=== PATIENT | female | born 1945 | race Caucasian/White ===

== ENCOUNTER 2018-07-14 09:36 | Inpatient (IN) | payer OTHER ==
[~2018-07-14] VITALS: Ht 162.6 cm; Wt 62.7 kg
[2018-07-14] MEDS ORDERED: NACL 0.9% 1,000 ML IV ONE (09:39)
[2018-07-14] MEDS ORDERED: ONDANSETRON HCL 4 MG/2 ML VIAL IVP ONE (09:45)
[2018-07-14 09:54] VITALS: BP_SYST 118
--- NOTE | 2018-07-14 10:03 | NUR ---
Placed in room 8. Placed on cardiac rehabilitation program director, blood pressure machine and pulse oximeter. To gown for exam. Side rails up. Report given to Yael HASTINGS.
[2018-07-14] MEDS ORDERED: MORPHINE 4 MG/ML INJ. SYRINGE IVP ONE ×2 (10:45→11:45)
[2018-07-14] MEDS ORDERED: DIPHENOXYLATE HCL/ATROP SULF 2.5 MG TAB PO ONE (10:45)
[2018-07-14 11:00] LABS: ANION GAP 16 (5-15); CALCIUM 8.9 mg/dL (8.4-11.0); CHLORIDE 103 mmol/L (98-107); CREATININE 0.56 mg/dL (0.55-1.30); GLUCOSE 123 mg/dL (70-99); POTASSIUM 3.1 mmol/L (3.5-5.1); SODIUM SERUM 136 mmol/L (136-145); UREA NITROGEN, BLOOD 14 mg/dL (8-21)
[2018-07-14 11:02] LABS: HEMATOCRIT 38.4 % (36-48); HEMOGLOBIN 12.8 g/dL (12.0-16.0); MEAN CORPUSCULAR HEMOGLOBIN 34 pg (27-31); MEAN CORPUSCULAR HGB CONC 33 % (32-36); MEAN CORPUSCULAR VOLUME 102 fL (79.0-98.0); RED BLOOD CELL COUNT(AUTO) 3.75 MIL/uL (4.2-6.2); WHITE BLOOD COUNT (AUTO) 11.3 K/uL (4.8-10.8)
[2018-07-14 11:03] LABS: BASOPHILS % (AUTO) 0.1 % (0.0-2.0); EOSINOPHILS % (AUTO) 0.1 % (0.0-4.0); LYMPHOCYTES # (AUTO) 1.2 K/uL (1.0-5.5); LYMPHOCYTES % (AUTO) 10.6 % (20.5-51.5); MONOCYTES # (AUTO) 1.2 K/uL (0.0-1.0); MONOCYTES % (AUTO) 10.7 % (1.7-9.3); NEUTROPHILS # (AUTO) 8.9 K/uL (1.8-7.7); NEUTROPHILS % (AUTO) 78.5 % (40.0-70.0); PLATELET COUNT (AUTO) 424 K/uL (130-430); RED CELL DISTRIBUTION WIDTH 14.6 % (9.0-15.0)
[2018-07-14 11:06] LABS: ALANINE AMINOTRANSFERASE 13 U/L (12-78); ASPARTATE AMINOTRANSFERASE 15 U/L (10-37); LIPASE 132 U/L (73-393); TOTAL BILIRUBIN 0.8 mg/dL (0.0-1.0)
--- NOTE | 2018-07-14 11:28 | NUR ---
Patient presented to ER with left humerus fraction, fractured 1 week ago
[2018-07-14 11:29] LABS: PROTHROMBIN TIME 10.3 SECS (9.5-12.5)
--- NOTE | 2018-07-14 11:29 | NUR ---
Patient presented to ER with left humerus fraction, fractured 1 week ago and diarrhea yesterday. Patient arrive via wheel chair, patient states she was seen [facility]. Patient A&Ox4, hard of hearing, afebrile, denies N/V and denies diarrhea today. Patient states pain is 10/10. Patient states she was mediating with oral hydrocodone, xanax and celebrex.
[2018-07-14] MEDS ORDERED: CLOPIDOGREL BISULFATE 75 MG TABLET PO ONE (12:00)
[2018-07-14] MEDS ORDERED: ASPIRIN 81 MG TAB.CHEW PO ONE (12:00)
[2018-07-14] MEDS ORDERED: ALPR0.5T PO (12:16)
[2018-07-14] MEDS ORDERED: HYDR-4274 PO ×2 (12:16→14:51)
[2018-07-14] MEDS ORDERED: CELE200C PO (12:16)
[2018-07-14] MEDS ORDERED: FLUT1DIS5 IH (12:16)
[2018-07-14] MEDS ORDERED: LEVOFLOXACIN 250 MG/D5W 50 ML IV SCH (13:00)
[2018-07-14] MEDS ORDERED: ONDANSETRON HCL 4 MG/2 ML VIAL IVP PRN (13:00)
[2018-07-14] MEDS ORDERED: ACETAMINOPHEN 325 MG TABLET PO PRN (13:00)
--- NOTE | 2018-07-14 13:10 | NUR ---
Pt assisted with bedside commode to provide urine sample. Pt tolerated well. Pt placed back on gurney in comfortable position. VSS at this time.
--- NOTE | 2018-07-14 13:20 | NUR ---
ER at bedside discussing hospital admission patient.
--- NOTE | 2018-07-14 13:25 | NUR ---
Admission Note Received patient from ER with diagnosis of Chest Pain. Initial Plan of Care discussed-patient verbalized understanding. Family at bedside. Oriented to room, call light, pain management and safety.
--- NOTE | 2018-07-14 13:30 | NUR ---
Patient will be admitted to care of Dr. Sanders. Admitted to Teleunit. Will go to room 101A . Belongings list completed. Summary report printed. Report will be given at bedside Sandra HASTINGS.
[2018-07-14 13:31] LABS: BILIRUBIN,URINE NEGATIVE (NEGATIVE); BLOOD, URINE NEGATIVE (NEGATIVE); CLARITY/URINE CLEAR (CLEAR); COLOR,URINE YELLOW (YELLOW); GLUCOSE,URINE NEGATIVE (NEGATIVE); KETONES,URINE 1+ (NEGATIVE); LEUKOCYTE ESTERASE ,URINE NEGATIVE (NEGATIVE); NITRITE, URINE NEGATIVE (NEGATIVE); PH,URINE 6.5 (5.0-8.0); PROTEIN URINE NEGATIVE (NEGATIVE); UROBILINOGEN,URINE 0.2 (0.2-1.0)
--- NOTE | 2018-07-14 13:34 | NUR ---
Patient transferred via rdevon, mobile monitor, 2 RN to room 101A. Report given at bedside to VENKATA Flores for continuation of care.
[2018-07-14 13:48] VITALS: BP_SYST 141
--- NOTE | 2018-07-14 14:05 | NUR ---
INITIAL NOTE patient received resting in bed A&O x4, patient denies any acute distress or pain at this time, breathing is even and unlabored on room air, educated patient on plan of care and call light system, will continue to monitor, safety precautions in place, call light within reach.
--- NOTE | 2018-07-14 14:26 | NUR ---
CONSULT: CONSULT CALLED FOR DR. SMALLS I SPOKE WITH ADALID GAY REASON FOR CONSULT: CHEST PAIN REQUESTING CONSULT: DR. ANGIE GARCIA CARPENTER ASSISTANT PHONE NUMBER: [phone]
[2018-07-14] MEDS ORDERED: HYDROcodone/ACETAMIN 10-325 MG TAB PO PRN (15:00)
[2018-07-14] MEDS: MORPHINE 4 MG/ML INJ. SYRINGE IVP PRN ×2 (15:10→21:53)
[2018-07-14] MEDS: metroNIDAZOLE 500 MG TABLET PO SCH ×3 (15:11→21:26)
[2018-07-14] MEDS: LEVOFLOXACIN 250 MG/D5W 50 ML IV SCH (16:12)
[2018-07-14] MEDS: ALPRAZolam 0.25 MG TABLET PO SCH ×2 (16:18→21:27)
[2018-07-14 16:25] VITALS: BP_SYST 120
[2018-07-14 16:34] VITALS: BP_SYST 120
--- NOTE | 2018-07-14 16:37 | NUR ---
NOTES patient is resting in bed A&O x4, pain is controlled at this time, patient denies any acute distress, will continue to monitor, safety precautions in place, call light within reach.
[2018-07-14] MEDS ORDERED: POTASSIUM CHLORIDE 20 MEQ TAB.PRT.SR PO ONE (17:15)
[2018-07-14] MEDS: NACL 0.9% 1,000 ML IV SCH (17:30)
--- NOTE | 2018-07-14 17:55 | NUR ---
CONSULT I CALLED CONSULT FOR DR. MOROCHO I SPOKE WITH EVANGELIST GAY SHE SAID DR. MOROCHO CAN'T ACCEPT PT INSURANCES I TOLD GIGI HASTINGS ALSO ARMANDO BEAN DUMPER THEY BOTH TOLD ME TO ENTER THIS INFORMATION IN MY NOTES.
--- NOTE | 2018-07-14 18:44 | NUR ---
CLOSING NOTE patient is resting in bed with eyes closed, breathing is even and unlabored on room air, no acute distress is noted, pain is controlled at this time, IVF infusing as ordered, all needs were met throughout shift, will endorse report to oncoming nurse, safety precautions in place, call light within reach.
--- NOTE | 2018-07-14 19:35 | NUR ---
ROUNDS PATIENT RESTING COMFORTABLY IN BED, NOT IN DISTRESS, VITALS STABLE, DENIES ANY PAIN AND DISCOMFORT AT THIS TIME. ASSESSMENT DONE AND DOCUMENTED. SEE FLOWSHEET. NEEDS ATTENDED TO. SAFETY AND FALL PRECAUTION MEASURES IN PLACED. BED IN LOW AND LOCKED POSITION. BED ALARM ON. CALL LIGHT PLACED WITHIN REACH
[2018-07-14] MEDS: ALBUTEROL SULFATE 0.083% 2.5 MG/3 ML VIAL.NEB INH SCH (20:03)
[2018-07-14] MEDS: BUDESONIDE 0.5 MG/2 ML AMPUL.NEB INH SCH (20:17)
[2018-07-14] MEDS ORDERED: NON-FORMULARY MEDICATION (Fluticasone/Salmeterol (Advair 500-50 Diskus) 1 EACH) IH SCH (21:00)
[2018-07-14] MEDS: CELECOXIB 200 MG CAPSULE PO SCH (21:00)
--- NOTE | 2018-07-14 21:20 | NUR ---
MEDICATION DUE MEDICATIONS GIVEN SCHEDULED, TOLERATED WELL. WILL CONTINUE TO MONITOR.
--- NOTE | 2018-07-15 00:10 | NUR ---
PATIENT RESTING: Patient resting quietly. No acute distress noted. Vital signs within normal range.
[2018-07-15 00:44] VITALS: BP_SYST 147
[2018-07-15] MEDS: ALBUTEROL SULFATE 0.083% 2.5 MG/3 ML VIAL.NEB INH SCH ×4 (01:23→19:50)
--- NOTE | 2018-07-15 02:13 | NUR ---
ROUNDS PATIENT ASLEEP, NO SOB NOR PAIN AND DISCOMFORT NOTED. WILL CONTINUE TO MONITOR.
[2018-07-15] MEDS: MORPHINE 4 MG/ML INJ. SYRINGE IVP PRN ×5 (02:28→20:35)
--- NOTE | 2018-07-15 04:14 | NUR ---
PATIENT RESTING: Patient resting quietly. No acute distress noted. Vital signs within normal range.
[2018-07-15] MEDS: NACL 0.9% 1,000 ML IV SCH ×3 (05:58→12:30)
--- NOTE | 2018-07-15 06:31 | NUR ---
CLOSING NOTES PATIENT AWAKE, VITALS STABLE, NO MORE PAIN AT THIS TIME. ALL NEEDS ATTENDED TO. SAFETY AND FALL PRECAUTION MEASURES IN PLACED. CALL LIGHT PLACED WITHIN REACH.
[2018-07-15] MEDS: BUDESONIDE 0.5 MG/2 ML AMPUL.NEB INH SCH ×2 (07:00→19:50)
[2018-07-15 07:29] LABS: HEMATOCRIT 32.9 % (36-48); LYMPHOCYTES % (AUTO) 18.5 % (20.5-51.5); MEAN CORPUSCULAR HEMOGLOBIN 34 pg (27-31); MEAN CORPUSCULAR HGB CONC 34 % (32-36); MEAN CORPUSCULAR VOLUME 102 fL (79.0-98.0); NEUTROPHILS % (AUTO) 69.9 % (40.0-70.0); PLATELET COUNT (AUTO) 365 K/uL (130-430); RED BLOOD CELL COUNT(AUTO) 3.23 MIL/uL (4.2-6.2); RED CELL DISTRIBUTION WIDTH 14.5 % (9.0-15.0); WHITE BLOOD COUNT (AUTO) 8.9 K/uL (4.8-10.8)
[2018-07-15 07:30] LABS: BASOPHILS % (AUTO) 0.3 % (0.0-2.0); EOSINOPHILS % (AUTO) 0.4 % (0.0-4.0); LYMPHOCYTES # (AUTO) 1.6 K/uL (1.0-5.5); MONOCYTES % (AUTO) 10.9 % (1.7-9.3); NEUTROPHILS # (AUTO) 6.2 K/uL (1.8-7.7)
[2018-07-15 07:39] LABS: ALANINE AMINOTRANSFERASE 17 U/L (12-78); ALBUMIN 2.5 g/dL (3.4-4.8); ANION GAP 8 (5-15); ASPARTATE AMINOTRANSFERASE 10 U/L (10-37); CALCIUM 8.3 mg/dL (8.4-11.0); CHLORIDE 107 mmol/L (98-107); CHOLESTEROL 113 mg/dL (<200); CREATININE 0.52 mg/dL (0.55-1.30); GLUCOSE 108 mg/dL (70-99); HDL CHOLESTEROL 36 mg/dL (>55); LDL CHOLESTEROL 62 mg/dL (<100); POTASSIUM 3.6 mmol/L (3.5-5.1); SODIUM SERUM 137 mmol/L (136-145); TOTAL BILIRUBIN 0.6 mg/dL (0.0-1.0); TRIGLYCERIDES 107 mg/dL (30-150); UREA NITROGEN, BLOOD 11 mg/dL (8-21)
[2018-07-15 08:04] VITALS: BP_SYST 150
--- NOTE | 2018-07-15 08:15 | NUR ---
OPENING NOTE patient received resting in bed A&O x4, no acute distress or pain is noted at this time, breathing is even and unlabored on room air, will continue to monitor, educated patient on plan of care and call light system, safety precautions in place, call light within reach.
--- NOTE | 2018-07-15 08:51 | NUR ---
MD rounds Dr. Sanders assessed patient in room.
[2018-07-15] MEDS ORDERED: CALCIUM CARBONATE/VITAMIN D3 1 TAB TABLET PO SCH (09:00)
[2018-07-15] MEDS: CALCITONIN SALMON,SYNTHETIC 3.7 ML SPRAY.PUMP NS SCH (09:00)
[2018-07-15] MEDS: PANTOPRAZOLE SODIUM 40 MG TAB PO SCH (09:12)
[2018-07-15] MEDS: CELECOXIB 200 MG CAPSULE PO SCH ×2 (09:12→20:34)
[2018-07-15] MEDS: metroNIDAZOLE 500 MG TABLET PO SCH ×4 (09:12→20:34)
[2018-07-15] MEDS: ASPIRIN 81 MG TAB.CHEW PO SCH (09:12)
[2018-07-15] MEDS: ENOXAPARIN SODIUM 40 MG/0.4 ML SYRINGE SUBCUT SCH (09:14)
[2018-07-15] MEDS: ALPRAZolam 0.25 MG TABLET PO SCH ×3 (09:15→20:35)
[2018-07-15] MEDS ORDERED: CALCIUM CARBONATE/VITAMIN D3 1 TAB TABLET PO ONE (09:30)
--- NOTE | 2018-07-15 09:38 | NUR ---
SPOKE TO PHARMACY per pharmacy, micalcin nasal spray is not available at this time and they will be ordering some.
--- NOTE | 2018-07-15 10:18 | NUR ---
DC PLANNING Received call from Daniel @ [place], ph [phone], [facility] spoke w Dr Sanders regarding possible dc to SNF today. I spoke w pt @ bedside, [facility] waiting for pain meds does not want to talk right now. Does not want to go to SNF, will take care of herself. [facility] is waiting for sister to come by after congregation. [facility] will speak w CM but not right now, "I had a rough night". Addendum: 07/15/18 at 1021 by Sumi Pace RN Called & updated Daniel.
[2018-07-15 11:19] VITALS: BP_SYST 139
--- NOTE | 2018-07-15 11:35 | NUR ---
NOTES assisted patient to ambulate to the bathroom, patient ambulated well with assist, pain is controlled at this time, patient denies any acute distress or pain, will continue to monitor, safety precautions in place, bed alarm on, call light within reach.
--- NOTE | 2018-07-15 12:45 | NUR ---
NOTES PATIENT IS RESTING IN BED WITH EYES CLOSED, BREATHING IS EVEN AND UNLABORED ON ROOM AIR, NO ACUTE DISTRESS IS NOTED, PAIN IS CONTROLLED AT THIS TIME, IVF INFUSING ORDERED, WILL CONTINUE TO MONITOR, SAFETY PRECAUTIONS IN PLACE, CALL LIGHT WITHIN REACH.
--- NOTE | 2018-07-15 14:25 | NUR ---
NOTES PATIENT IS RESTING IN BED TALKING TO SISTER, NO ACUTE DISTRESS IS NOTED, PAIN IS CONTROLLED AT THIS TIME, BREATHING EVEN AND UNLABORED, IVF INFUSING ORDERED, WILL CONTINUE TO MONITOR, SAFETY PRECAUTIONS IN PLACE, CALL LIGHT WITHIN REACH.
[2018-07-15] MEDS: LEVOFLOXACIN 250 MG/D5W 50 ML IV SCH (15:04)
[2018-07-15 15:20] LABS: THYROID STIMULATING HORMONE 1.18 uIu/mL (0.34-4.82)
[2018-07-15 15:28] VITALS: BP_SYST 133
--- NOTE | 2018-07-15 16:35 | NUR ---
NOTES patient resting in bed with eyes closed, no acute distress is noted, breathing is even and unlabored, no signs of pain noted, will continue to monitor, safety precautions in place, call light within reach.
--- NOTE | 2018-07-15 18:02 | NUR ---
IV SITE INFILTRATED removed iv catheter and covered with gauze, patient is refusing to have IV put in right now, states she wants to have dinner and is very worried about being transferred.
--- NOTE | 2018-07-15 18:44 | NUR ---
IV RE-INSERTION: Complaining of pain to IV site. Restarted on right forearm 22g. Successful after 1attempts. Resumed current IVF of NS and regulated @150 per hour. Will observe for any signs of infiltration.
--- NOTE | 2018-07-15 18:53 | NUR ---
CLOSING NOTE patient is resting in bed A&O x4, no acute distress noted, pain is controlled at this time, IVF infusing as ordered, all needs were met throughout shift, will endorse report to oncoming nurse, safety precautions in place, call light within reach.
--- NOTE | 2018-07-15 19:36 | NUR ---
ROUNDS PATIENT IN BED, AWAKE, ALERT, ORIENTED, VITALS STABLE, DENIES ANY PAIN AT THIS TIME. ASSESSMENT DONE AND DOCUEMNTED. SEE FLOWSHEET. NEEDS ATTENDED TO. SAFETY AND FALL PRECAUTION MEASURES IN PLACED. BED IN LOW AND LOCKED POSITION. BED ALARM ON. CALL LIGHT PLACED WITHIN REACH.
[2018-07-15 20:00] VITALS: BP_SYST 136
[2018-07-15] MEDS: CALCIUM CARBONATE/VITAMIN D3 1 TAB TABLET PO SCH (20:34)
--- NOTE | 2018-07-15 21:14 | NUR ---
MEDICATION DUE MEDICATIONS GIVEN ORDERED, TOLERATED WELL. WILL CONTINUE TO MONITOR.
--- NOTE | 2018-07-16 00:13 | NUR ---
PATIENT RESTING: Patient resting quietly. No acute distress noted. Vital signs within normal range.
[2018-07-16] MEDS: MORPHINE 4 MG/ML INJ. SYRINGE IVP PRN ×4 (02:08→15:45)
[2018-07-16] MEDS: NACL 0.9% 1,000 ML IV SCH ×3 (02:11→08:38)
--- NOTE | 2018-07-16 02:13 | NUR ---
ROUNDS PATIENT ASLEEP, RESPIRATIONS EVEN AND UNLABORED, WILL CONTINUE TO MONITOR.
--- NOTE | 2018-07-16 04:12 | NUR ---
ROUNDS PATIENT ASLEEP, NO SOB NOR PAIN AND DISCOMFORT NOTED. WILL CONTINUE TO MONITOR.
--- NOTE | 2018-07-16 06:48 | NUR ---
CLOSING NOTES PATIENT RESTING COMFORTABLY AT THIS TIME, VITALS STABLE, NO SIGNS OF ANY PAIN AND DISCOMFORT NOTED. ALL NEEDS ATTENDED TO. SAFETY MEASURES MAINTAINED. CALL LIGHT PLACED WITHIN REACH.
--- NOTE | 2018-07-16 06:50 | NUR ---
Nutrition Update Jamal Scale 17 noted. Pt admitted for chest pain, diarrhea Diet: 2gm Na diet BMI: 23.7 kg/m2 RD to follow per nutrition care standards.
[2018-07-16] MEDS: ALBUTEROL SULFATE 0.083% 2.5 MG/3 ML VIAL.NEB INH SCH ×2 (07:00→13:00)
[2018-07-16] MEDS: BUDESONIDE 0.5 MG/2 ML AMPUL.NEB INH SCH (07:00)
[2018-07-16 07:37] LABS: ALANINE AMINOTRANSFERASE 9 U/L (12-78); ALBUMIN 2.2 g/dL (3.4-4.8); ANION GAP 6 (5-15); ASPARTATE AMINOTRANSFERASE 10 U/L (10-37); CALCIUM 8.2 mg/dL (8.4-11.0); CHLORIDE 108 mmol/L (98-107); CREATININE 0.45 mg/dL (0.55-1.30); GLUCOSE 119 mg/dL (70-99); POTASSIUM 3.6 mmol/L (3.5-5.1); SODIUM SERUM 138 mmol/L (136-145); TOTAL BILIRUBIN 0.4 mg/dL (0.0-1.0); UREA NITROGEN, BLOOD 8 mg/dL (8-21)
[2018-07-16 07:46] VITALS: BP_SYST 149
--- NOTE | 2018-07-16 07:56 | NUR ---
Opening Notes, Received pt in bed, pt is aaox4, denies chest pain, no sob, no resp distress, pt appears anxious , pt c/o of feeling anxious and pain on left shoulder , stated that her pain med is not helping. pt's receiving ivf via r. fa , iv site is intact and patent. no s/s of infiltration. pt is afebrile. call light in reach, bed in in low position. encouraged to call for assist and pain meds. safety precaution on. will cont to monitor.
[2018-07-16] MEDS ORDERED: KETOROLAC TROMETHAMINE 30 MG VIAL IVP ONE (08:15)
[2018-07-16] MEDS: ALPRAZolam 0.25 MG TABLET PO SCH (08:19)
[2018-07-16] MEDS: ENOXAPARIN SODIUM 40 MG/0.4 ML SYRINGE SUBCUT SCH (08:21)
[2018-07-16] MEDS: CELECOXIB 200 MG CAPSULE PO SCH (08:22)
[2018-07-16] MEDS: ASPIRIN 81 MG TAB.CHEW PO SCH (08:22)
[2018-07-16] MEDS: PANTOPRAZOLE SODIUM 40 MG TAB PO SCH (08:22)
[2018-07-16] MEDS: CALCIUM CARBONATE/VITAMIN D3 1 TAB TABLET PO SCH (08:22)
[2018-07-16] MEDS: metroNIDAZOLE 500 MG TABLET PO SCH ×2 (08:22→12:07)
[2018-07-16] MEDS: CALCITONIN SALMON,SYNTHETIC 3.7 ML SPRAY.PUMP NS SCH (08:45)
[2018-07-16] MEDS ORDERED: ALPRAZolam 0.25 MG TABLET PO SCH (08:46)
[2018-07-16 09:22] LABS: HEMATOCRIT 29.8 % (36-48); MEAN CORPUSCULAR HEMOGLOBIN 35 pg (27-31); MEAN CORPUSCULAR HGB CONC 34 % (32-36); MEAN CORPUSCULAR VOLUME 103 fL (79.0-98.0); RED BLOOD CELL COUNT(AUTO) 2.91 MIL/uL (4.2-6.2); WHITE BLOOD COUNT (AUTO) 6.3 K/uL (4.8-10.8)
[2018-07-16 09:23] LABS: BASOPHILS % (AUTO) 0.5 % (0.0-2.0); EOSINOPHILS # (AUTO) 0.1 K/uL (0.0-0.4); EOSINOPHILS % (AUTO) 0.8 % (0.0-4.0); LYMPHOCYTES # (AUTO) 1.2 K/uL (1.0-5.5); LYMPHOCYTES % (AUTO) 19.8 % (20.5-51.5); MONOCYTES # (AUTO) 0.7 K/uL (0.0-1.0); NEUTROPHILS # (AUTO) 4.3 K/uL (1.8-7.7); NEUTROPHILS % (AUTO) 67.9 % (40.0-70.0); PLATELET COUNT (AUTO) 314 K/uL (130-430); RED CELL DISTRIBUTION WIDTH 15.2 % (9.0-15.0)
--- NOTE | 2018-07-16 10:58 | NUR ---
PT GIVEN PAIN MED FOR SHOULDER PAIN 10/31. WILL CONT TO MONITOR PT. PAGED DR ADAMS TO VERIFY DC ORDER.
[2018-07-16] MEDS: SIMETHICONE 80 MG TAB.CHEW PO SCH ×2 (11:02→14:12)
[2018-07-16 11:22] VITALS: BP_SYST 144
[2018-07-16 11:32] VITALS: BP_SYST 144
--- NOTE | 2018-07-16 11:41 | NUR ---
JOHN GONZALEZ SERVICE RIG OPERATOR RE ORDER TO DC TO SNF.
--- NOTE | 2018-07-16 12:29 | NUR ---
DC Planning: Updated and requested JACQUES Maria at [facility] for pt transfer to [facility]. Candace will call back when have room assignment at [facility], and ambulance bead picker time once she arranged with [place] [place]. --Pt's sister in law/Asya made aware. Addendum: 07/16/18 at 1345 by Mohinder Badillo RN >> Pt is assigned to room 101 at [facility], RN to report # [phone]. Ambulance transfer is pending [facility] to arrange for bead picker time. DC package delivered to [facility] unit. Ramiro HASTINGS made aware. Addendum: 07/16/18 at 8106 by Mohinder Badillo RN Notified Asya/ in law # [phone]: the expected departure time to [facility] is between 4 -5 pm.
[2018-07-16 13:04] VITALS: BP_SYST 144
--- NOTE | 2018-07-16 13:39 | NUR ---
SEEN PT SLEEPING, NO S/S OF PAIN. WILL CONT TO MONITOR.
[2018-07-16] MEDS: LEVOFLOXACIN 250 MG/D5W 50 ML IV SCH (14:12)
--- NOTE | 2018-07-16 14:38 | NUR ---
SBAR REPORT GIVEN TO NURSE DORINDA OF [facility]. TOLD CLOTH EDGE SINGER. MICHAELILYARene THAT [facility] IS REQUESTING TO HAVE PICKED UP AFTER 5 PM.
--- NOTE | 2018-07-16 14:46 | NUR ---
DC Planning: Set up by sandrine Maria at [facility] ambulance transfer via [facility] ambulance # [phone]. paper mill superintendent time at 4 pm. -- Dee at [facility] and VENKATA Rubio made aware.
[2018-07-16 15:33] VITALS: BP_SYST 157
--- NOTE | 2018-07-16 16:50 | NUR ---
DISCHARGE: [facility], REPORT WAS GIVEN TO NURSE ARIAN. PT ON STABLE CONDITION ON DISCHARGE. NO C/O PAIN, NO SOB, DC INSTRUCTION WITH PRESCRIPTION GIVEN AND ENDORSED TO AMBULANCE STAFF. PT TAKEN BY AMBULANCE STAFF.
== END 2018-07-16 16:40 | DRG 563 ==
LOC: SED 09:36 → STU 12:58
PROVIDERS: ADMIT Internal Medicine; ATTEND Internal Medicine
DX: S42.292A Other displaced fracture of upper end of left humerus, initial encounter for closed fracture (principal); I24.9 Acute ischemic heart disease, unspecified; J44.9 Chronic obstructive pulmonary disease, unspecified; I10 Essential (primary) hypertension; I35.0 Nonrheumatic aortic (valve) stenosis; G89.29 Other chronic pain; F41.9 Anxiety disorder, unspecified; K52.9 Noninfective gastroenteritis and colitis, unspecified; Z60.2 Problems related to living alone; M54.9 Dorsalgia, unspecified; M19.90 Unspecified osteoarthritis, unspecified site; R07.89 Other chest pain; Z98.42 Cataract extraction status, left eye; Z90.49 Acquired absence of other specified parts of digestive tract; Z87.891 Personal history of nicotine dependence; Z90.710 Acquired absence of both cervix and uterus; W18.39XA Other fall on same level, initial encounter; Y93.89 Activity, other specified; Y99.8 Other external cause status; Y92.091 Bathroom in other non-institutional residence as the place of occurrence of the external cause
CPT/HCPCS: 36415; 71045; 80053; 80061; 81003; 82550-TC; 83605; 83690-TC; 84443-TC; 84484; 85025; 85610-TC; 85730-TC; 86710; 87040-TC; 93005; 93306; 94664; 94760; 96361; 96374; 96375; 96376; 99285; G0378; J1650; J1885; J1956; J2270; J2405; J7030; J7613; J7626